=== PATIENT | female | born 1990 | race Hispanic/Latino ===

== ENCOUNTER 2019-03-02 17:14 | Emergency (ER) | payer MEDICAID ==
[2019-03-02 17:40] VITALS: BP 126/77
--- NOTE | 2019-03-02 17:45 | Emergency Department Report ---
Chief Complaint: Medical Clearance Stated Complaint: CHECK FOR HEADBUGS Time Seen by Provider: 03/02/19 17:36 - HPI History of Present Illness: This is [id number] female nontoxic well in appearance with no signs of distress presents to the ED with complaint jose head lice. Patient denies any other symptoms. Denies any fever, chills, headache, nausea, vomiting, chest pain or SOB. Denies any other complaints. - Exam Vital Signs: Vital Signs 03/02/19 17:38 Temperature 98.2 F Pulse Rate 72 Respiratory 18 Rate Blood Pressure 126/77 O2 Sat by Pulse 100 Oximetry Physical Exam: small little eggs noted with lice to the head. MSE screening note: Focused history and physical exam performed. Due to findings the following was ordered: ED Medical Decision Making - Medical Decision Making Patient was instructed to Follow-up with a primary care doctor in 3-5 days or if symptoms worsen and continue return to emergency room as soon as possible. At time of discharge, the patient does not seem toxic or ill in appearance. No acute signs of distress noted. Patient agrees to discharge treatment plan of care. No further questions noted by the patient. ED Disposition for MSE Clinical Impression: Head lice Disposition: DC-01 TO HOME OR SELFCARE Is pt being admited?: No Does the pt Need Aspirin: No Condition: Stable Additional Instructions: Follow-up with a primary care doctor in 3-5 days or if symptoms worsen and continue return to emergency room as soon as possible. Topical: Cream rinse/lotion 1%: Prior to application, wash hair with conditioner-free shampoo; rinse with water and towel dry. Apply a sufficient amount of lotion or cream rinse to saturate the hair and scalp (especially behind the ears and nape of neck). Leave on hair for 10 minutes (but no longer), then rinse off with warm water; remove remaining nits with nit comb. A single application is generally sufficient; however, may repeat 7 days after first treatment if lice or nits are still present. Prescriptions: Permethrin [Stop Lice SPRAY] 142 gm MC ONCE #1 spray Referrals: PRIMARY CAREMD [Referring] - 3-5 Days KOBE MARSH MD [Staff Physician] - 3-5 Days [facility] [Outside] - 3-5 Days [facility] [Outside] - 3-5 Days Forms: Work/School Release Form(ED)
== END 2019-03-02 18:00 | disposition home or self-care (01) ==
LOC: ED 17:14
DX: B85.0 Pediculosis due to Pediculus humanus capitis (principal)
CPT/HCPCS: 99281

== ENCOUNTER 2020-02-06 23:26 | Emergency (ER) | payer MEDICAID ==
[2020-02-07 03:59] VITALS: BP 118/73
--- NOTE | 2020-02-07 04:02 | Emergency Department Report ---
ED Female HPI - General Chief complaint: Skin/Abscess/Foreign Body Stated complaint: TAMPON STUCK INSIDE VAGINA Time Seen by Provider: 02/07/20 03:20 Source: patient Mode of arrival: Ambulatory Limitations: No Limitations - History of Present Illness Initial comments: 29-year-old -[place] female states that she cannot find a tampon that she placed earlier today. Patient comes in with mild abdominal cramping. Patient last menstrual period was 02/05/2020. Patient admits that she has been water rafting today. She does admit to vaginal discharge prior to her menses coming on. Complaint: vaginal discharge, other (Retained tampon) -: This afternoon Location: suprapubic Severity: mild Quality: cramping Consistency: intermittent Improves with: none Worsens with: none Are you Now?: No Last Menstrual Period: 02/05/20 EDC: 11/11/20 Associated Symptoms: vaginal discharge - Related Data Sexually active: Yes Previous Rx's Medication Instructions Recorded Last Taken Type DOXYCYCLINE Hyclate [Vibramycin 100 mg PO BID #20 capsule 06/23/13 Unknown Rx CAP] Hydrocodone Bit/Acetaminophen 1 each PO Q6HR #15 tablet 06/23/13 Unknown Rx [Lortab 5-500 Tablet] Ibuprofen [Motrin] 800 mg PO TID PRN #30 tablet 06/23/13 Unknown Rx metroNIDAZOLE [Flagyl] 500 mg PO BID #20 tablet 06/23/13 Unknown Rx Permethrin [Stop Lice SPRAY] 142 gm MC ONCE #1 spray 03/02/19 Unknown Rx Azithromycin 1,000 mg PO ONCE 1 Days #2 tablet 02/07/20 Unknown Rx metroNIDAZOLE [Flagyl] 500 mg PO Q8HR 7 Days #21 tablet 02/07/20 Unknown Rx Allergies Allergy/AdvReac Type Severity Reaction Status Date / Time No Known Allergies Allergy Verified 06/23/13 22:38 ED Review of Systems ROS: Stated complaint: TAMPON STUCK INSIDE VAGINA Other details as noted in HPI Comment: All other systems reviewed and negative ED Past Medical Hx - Past Medical History Previous Medical History?: No - Surgical History Past Surgical History?: Yes Additional Surgical History: ectopic - Social History Smoking Status: Never Smoker Substance Use Type: Alcohol - Medications Home Medications: Home Medications Medication Instructions Recorded Confirmed Last Taken Type DOXYCYCLINE Hyclate [Vibramycin 100 mg PO BID #20 capsule 06/23/13 Unknown Rx CAP] Hydrocodone Bit/Acetaminophen 1 each PO Q6HR #15 tablet 06/23/13 Unknown Rx [Lortab 5-500 Tablet] Ibuprofen [Motrin] 800 mg PO TID PRN #30 tablet 06/23/13 Unknown Rx metroNIDAZOLE [Flagyl] 500 mg PO BID #20 tablet 06/23/13 Unknown Rx Permethrin [Stop Lice SPRAY] 142 gm MC ONCE #1 spray 03/02/19 Unknown Rx Azithromycin 1,000 mg PO ONCE 1 Days #2 tablet 02/07/20 Unknown Rx metroNIDAZOLE [Flagyl] 500 mg PO Q8HR 7 Days #21 tablet 02/07/20 Unknown Rx ED Physical Exam - General Limitations: No Limitations General appearance: alert, in no apparent distress - Head Head exam: Present: atraumatic, normocephalic - Eye Eye exam: Present: normal appearance - Neck Neck exam: Present: normal inspection - GI/Abdominal GI/Abdominal exam: Present: soft. Absent: distended, tenderness, guarding - External exam: Present: normal external exam Speculum exam: Present: cervical discharge. Absent: foreign body Bi-manual exam: Present: normal bi-manual exam. Absent: cervical motion tendernes, adnexal tenderness, adnexal mass - Extremities Exam Extremities exam: Present: normal inspection, full ROM - Back Exam Back exam: Present: normal inspection - Neurological Exam Neurological exam: Present: alert, oriented X3, normal gait - Psychiatric Psychiatric exam: Present: normal affect, normal mood - Skin Skin exam: Present: warm, dry, intact, normal color. Absent: rash ED Course Vital Signs 02/07/20 01:12 Temperature 98.4 F Pulse Rate 89 Respiratory 20 Rate Blood Pressure 118/73 O2 Sat by Pulse 99 Oximetry ED Medical Decision Making - Medical Decision Making 29-year-old -[place] female states that she cannot find a tampon that she placed earlier today. Patient comes in with mild abdominal cramping. Patient last menstrual period was 02/05/2020. Patient admits that she has been water rafting today. She does admit to vaginal discharge prior to her menses coming on. Pelvic exam not appreciate any foreign body in vaginal vault. Patient does have some purulent foul discharge from the cervix. Will treat patient for gonorrhea and prescription for chlamydia and bacterial vaginosis. Critical care attestation.: If time is entered above; I have spent that time in minutes in the direct care of this critically ill patient, excluding procedure time. ED Disposition Clinical Impression: Vaginal discharge Disposition: - TO HOME OR SELFCARE Is pt being admited?: No Does the pt Need Aspirin: No Condition: Stable Instructions: Cervicitis (ED) Additional Instructions: Take medication as prescribed. Inform your sexual partner and that you have been treated. Recommend to follow-up with your [facility] SPECIALIST or health department. Prescriptions: Azithromycin 1,000 mg PO ONCE 1 Days #2 tablet metroNIDAZOLE [Flagyl] 500 mg PO Q8HR 7 Days #21 tablet Referrals: PRIMARY CARE [Primary Care Provider] - 3-5 Days [facility] [Provider Group] - 3-5 Days [facility] [Outside] - 3-5 Days
[2020-02-07] MEDS ORDERED: LIDOCAINE-MPF (1%) 10 MG/1 ML VIAL 5 ML INFILTRATI ONE (04:03)
== END 2020-02-07 05:05 | disposition home or self-care (01) ==
LOC: ED 23:26
DX: N89.8 Other specified noninflammatory disorders of vagina (principal); Z79.899 Other long term (current) drug therapy
CPT/HCPCS: 96372; 99283; J0696